=== PATIENT | female | born 1985 | race Two or more races ===

== ENCOUNTER 2018-12-02 14:44 | Inpatient (IN) | payer MEDICAID, OTHER ==
[~2018-12-02] VITALS: Ht 152.4 cm; Wt 75.0 kg
[2018-12-02] MEDS ORDERED: D5%-LACTATED RINGERS 1,000 ML IV SCH (14:53)
[2018-12-02] MEDS ORDERED: OXYTOCIN 30U/ 0.9% NaCL 500ML 500 ML IV ONE (14:53)
[2018-12-02] MEDS ORDERED: OXYTOCIN 30U/ 0.9% NaCL 500ML 500 ML IV PRN (14:53)
[2018-12-02] MEDS ORDERED: ONDANSETRON 2MG/ML, 2ML IVPush PRN (15:00)
[2018-12-02] MEDS ORDERED: METOCLOPRAMIDE 5 MG/ML, 2ML IVPush PRN (15:00)
[2018-12-02] MEDS ORDERED: FENTANYL PF 100 MCG/2ML IVPush PRN (15:00)
[2018-12-02] MEDS ORDERED: FENTANYL PF 100 MCG/2ML IV PRN (15:00)
[2018-12-02] MEDS ORDERED: PENICILLIN GK 5,000,000 UNITS in DEXTROSE 5% 100 ML IVPB ONE (15:30)
[2018-12-02] MEDS: PLEASE ENTER HEIGHT AND WEIGHT MC SCH ×2 (15:30→23:30)
[2018-12-02] MEDS ORDERED: PLEASE ENTER ALLERGIES MC SCH (15:30)
[2018-12-02] MEDS ORDERED: NEWBORN KIT ONE (15:33)
[2018-12-02] MEDS ORDERED: OXYTOCIN 30U/ 0.9% NaCL 500ML 500 ML ONE (15:33)
[2018-12-02] MEDS ORDERED: LIDOCAINE 1%, 20ML ONE (15:33)
[2018-12-02] MEDS ORDERED: MISOPROSTOL 200 MCG TABLET ONE (15:33)
[2018-12-02] MEDS: LACTATED RINGERS 1,000 ML IV SCH ×2 (15:44→22:17)
[2018-12-02 16:04] LABS: ALANINE AMINOTRANSFERASE 11 U/L (12-78); ALBUMIN 2.4 g/dL (3.4-5.0); ANION GAP 8 mmol/L (5-15); CALCIUM 8.3 mg/dL (8.5-10.1); CHLORIDE 111 mmol/L (98-107); CREATININE 0.72 mg/dL (0.55-1.02)
[2018-12-02 16:06] LABS: ALKALINE PHOSPHATASE 339 U/L (45-117); BILIRUBIN,TOTAL 0.2 mg/dL (0.2-1.0); TOTAL PROTEIN 5.9 g/dL (6.4-8.2)
[2018-12-02 16:17] LABS: BASOPHILS # (AUTO) 0.02 x10^3/uL (0-0.1); BASOPHILS % (AUTO) 0 % (0-1); EOSINOPHILS # (AUTO) 0.18 x10^3/uL (0-0.4); EOSINOPHILS % (AUTO) 4 % (1-7); LYMPHOCYTES # (AUTO) 1.09 x10^3/uL (1-3.4); LYMPHOCYTES % (AUTO) 24 % (22-44); MD SCAN; MEAN CORPUSCULAR HEMOGLOBIN 27.5 pg (27.0-34.8); MEAN CORPUSCULAR HGB CONC 32.4 g/dL (32.4-35.8); MEAN CORPUSCULAR VOLUME 84.8 fL (80-100); MEAN PLATELET VOLUME 11.1 fL (7.4-10.4); MONOCYTES # (AUTO) 0.36 x10^3/uL (0.2-0.8); MONOCYTES % (AUTO) 8 % (2-9); NEUTROPHILS % (AUTO) 64 % (42-75); PLATELET COUNT 74 x10^3/uL (130-400); RED BLOOD COUNT 3.94 x10^6/uL (3.82-5.3); RED CELL DISTRIBUTION WIDTH 14.7 % (9.6-15.2)
[2018-12-02] MEDS ORDERED: CALCIUM CARBONATE 500 MG TAB.CHEW PO PRN (20:00)
[2018-12-02] MEDS ORDERED: SODIUM CITRATE/CITRIC ACID 15 ML UDC PO ONE (20:00)
[2018-12-02] MEDS: PENICILLIN GK 2,500,000 UNITS in DEXTROSE 5% 100 ML IVPB SCH ×2 (20:06→23:47)
[2018-12-02] MEDS ORDERED: NALOXONE 0.4 MG/ML, 1ML IVPush PRN (21:30)
[2018-12-02] MEDS ORDERED: REMIFENTANIL 3 MG in SODIUM CHLORIDE 0.9% 30 ML IV PRN ×2 (21:30→23:00)
[2018-12-03] VITALS (7 sets, daily range): BP systolic 119–156; BP diastolic 78–104
[2018-12-03 01:33] LABS: MEAN CORPUSCULAR HEMOGLOBIN 27.8 pg (27.0-34.8); MEAN CORPUSCULAR HGB CONC 32.6 g/dL (32.4-35.8); MEAN CORPUSCULAR VOLUME 85.4 fL (80-100); PLATELET COUNT 82 x10^3/uL (130-400); RED BLOOD COUNT 4.19 x10^6/uL (3.82-5.3); RED CELL DISTRIBUTION WIDTH 15.1 % (9.6-15.2)
[2018-12-03 01:42] LABS: BASOPHILS # (AUTO) 0.01 x10^3/uL (0-0.1); BASOPHILS % (AUTO) 0 % (0-1); EOSINOPHILS # (AUTO) 0.22 x10^3/uL (0-0.4); EOSINOPHILS % (AUTO) 4 % (1-7); LYMPHOCYTES # (AUTO) 1.05 x10^3/uL (1-3.4); LYMPHOCYTES % (AUTO) 18 % (22-44); MD SCAN; MONOCYTES # (AUTO) 0.36 x10^3/uL (0.2-0.8); MONOCYTES % (AUTO) 6 % (2-9); NEUTROPHILS # (AUTO) 4.06 x10^3/uL (1.8-6.8); NEUTROPHILS % (AUTO) 71 % (42-75)
[2018-12-03] MEDS: PENICILLIN GK 2,500,000 UNITS in DEXTROSE 5% 100 ML IVPB SCH ×2 (03:55→07:57)
[2018-12-03] MEDS: LACTATED RINGERS 1,000 ML IV SCH ×3 (06:28→20:35)
[2018-12-03] MEDS: PLEASE ENTER HEIGHT AND WEIGHT MC SCH ×2 (07:30→15:30)
[2018-12-03 09:04] LABS: MEAN CORPUSCULAR HEMOGLOBIN 27.7 pg (27.0-34.8); MEAN CORPUSCULAR HGB CONC 32.3 g/dL (32.4-35.8); MEAN CORPUSCULAR VOLUME 85.6 fL (80-100); RED BLOOD COUNT 4.01 x10^6/uL (3.82-5.3); RED CELL DISTRIBUTION WIDTH 15.1 % (9.6-15.2)
[2018-12-03] MEDS ORDERED: MEPERIDINE/PF 25MG/0.5ML IVPush PRN (09:30)
[2018-12-03] MEDS ORDERED: hydrALAzine 20 MG/ML, 1ML IV PRN (09:30)
[2018-12-03] MEDS ORDERED: LABETALOL 5MG/ML, 20ML IV PRN (09:30)
[2018-12-03] MEDS ORDERED: METOPROLOL 1 MG/ML, 5ML IV PRN (09:30)
[2018-12-03] MEDS ORDERED: OXYcodone 5 MG/5 ML ORAL.SOL UDC PO PRN (09:30)
[2018-12-03] MEDS ORDERED: EPHEDRINE 50 MG/ML, 1ML IVPush PRN (09:30)
[2018-12-03] MEDS ORDERED: ALBUTEROL SULFATE 2.5 MG/3 ML NPPB PRN (09:30)
[2018-12-03] MEDS ORDERED: ONDANSETRON 2MG/ML, 2ML IVPush PRN (09:30)
[2018-12-03] MEDS ORDERED: HYDROcodone/APAP 7.5-325MG/15ML UDC PO PRN (09:30)
[2018-12-03] MEDS ORDERED: FENTANYL PF 100 MCG/2ML IV PRN (09:30)
[2018-12-03] MEDS ORDERED: MIDAZOLAM 1 MG/ML, 2ML IV PRN (09:30)
[2018-12-03] MEDS ORDERED: PROMETHAZINE 25 MG/ML, 1ML IV PRN (09:30)
[2018-12-03 09:36] LABS: D-DIMER (DIC) 4.52 ug/mlFEU (0.00-0.52); PROTIME 9.4 Seconds (9.6-11.5)
[2018-12-03 09:40] LABS: MEAN PLATELET VOLUME 10.7 fL (7.4-10.4); PLATELET COUNT 79 x10^3/uL (130-400)
[2018-12-03 09:42] LABS: BASOPHILS # (AUTO) 0.02 x10^3/uL (0-0.1); BASOPHILS % (AUTO) 0 % (0-1); EOSINOPHILS # (AUTO) 0.05 x10^3/uL (0-0.4); EOSINOPHILS % (AUTO) 1 % (1-7); LYMPHOCYTES # (AUTO) 0.93 x10^3/uL (1-3.4); LYMPHOCYTES % (AUTO) 14 % (22-44); MD SCAN; MONOCYTES # (AUTO) 0.49 x10^3/uL (0.2-0.8); MONOCYTES % (AUTO) 7 % (2-9); NEUTROPHILS % (AUTO) 78 % (42-75)
[2018-12-03 10:20] LABS: MICROSCOPIC NOT IND
[2018-12-03] MEDS ORDERED: LACTATED RINGERS 1,000 ML IV SCH (10:35)
[2018-12-03] MEDS: OXYTOCIN 30U/ 0.9% NaCL 500ML 500 ML IV SCH ×2 (10:35→20:35)
[2018-12-03] MEDS ORDERED: METOCLOPRAMIDE 5 MG/ML, 2ML ONE (10:37)
[2018-12-03] MEDS ORDERED: PROPOFOL 10 MG/ML, 20ML ONE (10:37)
[2018-12-03] MEDS ORDERED: SUCCINYLCHOLINE 20 MG/ML, 10ML ONE (10:37)
[2018-12-03] MEDS ORDERED: LIDOCAINE-MPF 2% ,5ML ONE (10:37)
[2018-12-03] MEDS ORDERED: OXYTOCIN 10 UNITS/ML, 1ML ONE (10:56)
[2018-12-03] MEDS ORDERED: KETOROLAC 30 MG/1 ML ONE (10:56)
[2018-12-03] MEDS ORDERED: DEXAMETHASONE 4 MG/ML, 1ML ONE (10:56)
[2018-12-03] MEDS ORDERED: PHENYLEPHRINE 10 MG/ML ONE (10:56)
[2018-12-03] MEDS ORDERED: ONDANSETRON 2MG/ML, 2ML ONE (10:56)
[2018-12-03] MEDS ORDERED: FENTANYL PF 100 MCG/2ML ONE ×2 (10:56→10:57)
[2018-12-03] MEDS ORDERED: CEFAZOLIN 1,000 MG ONE (10:56)
[2018-12-03] MEDS ORDERED: SODIUM BICARBONATE 1 MEQ/ML, 50ML VIAL ONE (10:56)
[2018-12-03] MEDS ORDERED: EPHEDRINE 50 MG/ML, 1ML ONE (10:56)
[2018-12-03] MEDS ORDERED: HYDROmorphone 2 MG/ML, 1ML ONE ×2 (10:57→11:48)
[2018-12-03] MEDS ORDERED: CARBOPROST TROMETHAMINE 250 MCG/ML, 1ML IM PRN (11:00)
[2018-12-03] MEDS ORDERED: MISOPROSTOL 200 MCG TABLET PR PRN (11:00)
[2018-12-03] MEDS ORDERED: SIMETHICONE 80 MG CHEW TAB PO PRN (11:00)
[2018-12-03] MEDS ORDERED: morphine SULFATE 10 MG/ML, 1ML IM PRN (11:00)
[2018-12-03] MEDS: KETOROLAC 30 MG/1 ML IV SCH ×2 (11:00→17:51)
[2018-12-03] MEDS ORDERED: MEASLES,MUMPS&RUBELLA VACC/PF 0.5 ML SQ-VACC PRN (11:00)
[2018-12-03] MEDS ORDERED: ONDANSETRON 2MG/ML, 2ML IV PRN (11:00)
[2018-12-03] MEDS ORDERED: DIPH,PERTUSS(ACELL),TET VAC/PF NC IM-VACC PRN (11:00)
[2018-12-03 11:03] LABS: CREATININE,URINE RANDOM 38.5 mg/dL
[2018-12-03] MEDS: HYDROmorphone 2 MG/ML, 1ML IVPush PRN ×3 (11:52→12:14)
[2018-12-03] MEDS ORDERED: HYDROcodone/APAP 7.5-325MG/15ML UDC ONE (13:08)
[2018-12-03] MEDS ORDERED: LACTATED RINGERS 1,000 ML IVBOLUS ONE (15:00)
[2018-12-03] MEDS ORDERED: MORPHINE SULFATE 4 MG/ML, 1ML ONE (15:34)
[2018-12-03] MEDS: OXYcodone IR 5MG TABLET PO PRN (17:24)
[2018-12-03 19:41] LABS: MEAN CORPUSCULAR HEMOGLOBIN 28.2 pg (27.0-34.8); MEAN CORPUSCULAR HGB CONC 32.4 g/dL (32.4-35.8); MEAN PLATELET VOLUME 10.4 fL (7.4-10.4); PLATELET COUNT 80 x10^3/uL (130-400); RED BLOOD COUNT 3.76 x10^6/uL (3.82-5.3); RED CELL DISTRIBUTION WIDTH 14.6 % (9.6-15.2)
[2018-12-03 19:43] LABS: MD YES
[2018-12-03 19:45] LABS: <PLATELET ESTIMATE> DECREASED; <PLT MORPHOLOGY> NORMAL PLT MORPH; BAND#(MANUAL) 1.79 x10^3/uL; BANDS%(MANUAL) 14 % (0-7); LYMPH#(MANUAL) 1.28 x10^3/uL (1-3.4); LYMPHS% (MANUAL) 10 % (22-44); MONOS#(MANUAL) 0.26 x10^3/uL (0.3-2.7); MONOS% (MANUAL) 2 % (2-9); POLYCHROMASIA 1+; SEG#(MANUAL) 9.47 x10^3/uL (1.8-6.8); SEGS% (MANUAL) 74 % (42-75)
[2018-12-04] VITALS: BP 127/85
[2018-12-04] MEDS: KETOROLAC 30 MG/1 ML IV SCH ×4 (00:03→20:43)
[2018-12-04] MEDS: DOCUSATE 100 MG CAPSULE PO PRN ×3 (00:04→20:45)
[2018-12-04 04:50] VITALS: BP 112/76
[2018-12-04] MEDS: OXYcodone/APAP 5/325MG TABLET PO PRN ×2 (06:28→13:00)
[2018-12-04] MEDS: LACTATED RINGERS 1,000 ML IV SCH ×2 (06:35→16:35)
[2018-12-04] MEDS: OXYTOCIN 30U/ 0.9% NaCL 500ML 500 ML IV SCH ×2 (06:35→16:35)
[2018-12-04 08:05] VITALS: BP 110/67
[2018-12-04] MEDS: PRENATAL VIT/IRON/FA 1 EACH TABLET PO SCH (08:23)
[2018-12-04] MEDS: ACETAMINOPHEN 325 MG TABLET PO PRN (16:45)
[2018-12-04] MEDS: OXYcodone IR 5MG TABLET PO PRN ×2 (16:45→20:53)
[2018-12-04 19:15] VITALS: BP 126/85
[2018-12-05] MEDS: KETOROLAC 30 MG/1 ML IV SCH (02:00)
[2018-12-05] MEDS: LACTATED RINGERS 1,000 ML IV SCH ×3 (02:35→22:35)
[2018-12-05] MEDS: OXYTOCIN 30U/ 0.9% NaCL 500ML 500 ML IV SCH ×3 (02:35→22:35)
[2018-12-05] MEDS: IBUPROFEN 600 MG TABLET PO PRN ×3 (04:21→17:54)
[2018-12-05] MEDS: OXYcodone IR 5MG TABLET PO PRN ×4 (04:26→22:06)
[2018-12-05] MEDS: ACETAMINOPHEN 325 MG TABLET PO PRN (07:36)
[2018-12-05] MEDS: PRENATAL VIT/IRON/FA 1 EACH TABLET PO SCH (07:36)
[2018-12-05] MEDS: DOCUSATE 100 MG CAPSULE PO PRN (07:36)
[2018-12-05 08:00] VITALS: BP 134/88
[2018-12-05 20:00] VITALS: BP 160/82
[2018-12-06 08:15] VITALS: BP 146/91
[2018-12-06] MEDS: DOCUSATE 100 MG CAPSULE PO PRN (08:50)
[2018-12-06] MEDS: PRENATAL VIT/IRON/FA 1 EACH TABLET PO SCH (08:50)
[2018-12-06] MEDS: IBUPROFEN 600 MG TABLET PO PRN (08:50)
[2018-12-06] MEDS: OXYcodone IR 5MG TABLET PO PRN (08:50)
[2018-12-06] MEDS ORDERED: OXYC-302 PO (11:11)
[2018-12-06] MEDS ORDERED: IBUP-1222 PO (11:11)
[2018-12-06 13:29] VITALS: BP 146/93
== END 2018-12-06 14:15 | disposition home or self-care (01) | DRG 787 ==
LOC: LDIP 14:44 → 2NW 12-03 13:58
PROVIDERS: ADMIT Student in an Organized Health Care Education/Training Program; ATTEND Student in an Organized Health Care Education/Training Program
PROC: 10D00Z1 Extraction of Products of Conception, Low, Open Approach (ICD-10-PCS; principal; 2018-12-03)
PROC: 10907ZC Drainage of Amniotic Fluid, Therapeutic from Products of Conception, Via Natural or Artificial Opening (ICD-10-PCS; 2018-12-03)
PROC: 10H07YZ Insertion of Other Device into Products of Conception, Via Natural or Artificial Opening (ICD-10-PCS; 2018-12-03)
PROC: 4A1H7CZ Monitoring of Products of Conception, Cardiac Rate, Via Natural or Artificial Opening (ICD-10-PCS; 2018-12-03)
PROC: 3E0234Z Introduction of Serum, Toxoid and Vaccine into Muscle, Percutaneous Approach (ICD-10-PCS; 2018-12-03)
DX: O14.94 Unspecified pre-eclampsia, complicating childbirth (principal); O99.12 Other diseases of the blood and blood-forming organs and certain disorders involving the immune mechanism complicating childbirth; O99.824 Streptococcus B carrier state complicating childbirth; Z3A.39 39 weeks gestation of pregnancy; Z37.0 Single live birth; G89.18 Other acute postprocedural pain; O62.0 Primary inadequate contractions; D69.59 Other secondary thrombocytopenia; O64.0XX0 Obstructed labor due to incomplete rotation of fetal head, not applicable or unspecified; Z23 Encounter for immunization
CPT/HCPCS: 36415; J3490; 80053; 81003; 82570; 82803; 84156; 84550; 85025; 85049; 85379; 85384; 85610; 85730; 86850; 86900; 86923; G0378; J0690; J1100; J1170; J1885; J2405; J2540; J2704; J3010; J0330; J2270; J2370; J2590; J2765; J7120

== ENCOUNTER 2020-04-08 03:54 | Outpatient (CLI) | payer MEDICAID ==
[~2020-04-08] VITALS: Ht 147.3 cm; Wt 72.3 kg
[~2020-04-08 03:54] MED LIST: IBUP-1222 PO; OXYC-302 PO
[2020-04-08 04:34] VITALS: BP 128/78
[2020-04-08 06:21] LABS: MICROSCOPIC INDICATED
[2020-04-08] MEDS ORDERED: HYDROcodone/APAP 5/325 TABLET PO ONE (07:30)
[2020-04-08] MEDS ORDERED: HYDROcodone/APAP 5/325 TABLET ONE (07:31)
== END 2020-04-08 09:00 | disposition home or self-care (01) ==
LOC: LDOP 03:54
PROVIDERS: ATTEND Student in an Organized Health Care Education/Training Program
DX: O62.9 Abnormality of forces of labor, unspecified (principal); Z3A.37 37 weeks gestation of pregnancy
CPT/HCPCS: 59025; 81001; 87086

== ENCOUNTER 2020-04-10 06:22 | Inpatient (IN) | payer MEDICAID ==
[~2020-04-10] VITALS: Ht 147.3 cm; Wt 72.3 kg
[2020-04-10 06:30] VITALS: BP 122/86
[2020-04-10] MEDS ORDERED: LACTATED RINGERS 1,000 ML IVBOLUS ONE (07:00)
[2020-04-10] MEDS ORDERED: SODIUM CITRATE/CITRIC ACID 30 ML UDC PO ONE (07:00)
[2020-04-10] MEDS ORDERED: METOCLOPRAMIDE 5 MG/ML, 2ML IV ONE (07:00)
[2020-04-10 07:12] LABS: BASOPHILS % (AUTO) 0 % (0-1); EOSINOPHILS % (AUTO) 0 % (1-7); LYMPHOCYTES % (AUTO) 21 % (22-44); MEAN CORPUSCULAR HEMOGLOBIN 26.9 pg (27.0-34.8); MEAN CORPUSCULAR HGB CONC 32.1 g/dL (32.4-35.8); MEAN PLATELET VOLUME 9.5 fL (7.4-10.4); MONOCYTES % (AUTO) 8 % (2-9); NEUTROPHILS % (AUTO) 70 % (42-75); PLATELET COUNT 103 x10^3/uL (130-400); RED BLOOD COUNT 4.46 x10^6/uL (3.82-5.3); RED CELL DISTRIBUTION WIDTH 15.2 % (9.6-15.2)
[2020-04-10] MEDS ORDERED: NEWBORN KIT ONE (07:16)
[2020-04-10] MEDS ORDERED: OXYTOCIN 30U/ 0.9% NaCL 500ML 500 ML ONE (07:16)
[2020-04-10] MEDS ORDERED: METOCLOPRAMIDE 5 MG/ML, 2ML ONE (07:16)
[2020-04-10 07:24] LABS: MD NO
[2020-04-10] MEDS: LACTATED RINGERS 1,000 ML IV SCH ×3 (07:42→23:00)
[2020-04-10] MEDS ORDERED: ONDANSETRON 2MG/ML, 2ML ONE (08:52)
[2020-04-10] MEDS ORDERED: CEFAZOLIN 1,000 MG ONE (08:52)
[2020-04-10] MEDS ORDERED: OXYTOCIN 10 UNITS/ML, 1ML ONE (08:52)
[2020-04-10] MEDS ORDERED: FENTANYL PF 100 MCG/2ML ONE (08:53)
[2020-04-10] MEDS ORDERED: HYDROmorphone 2 MG/ML, 1ML ONE (08:53)
[2020-04-10] MEDS ORDERED: KETOROLAC 30 MG/1 ML ONE (09:31)
[2020-04-10] MEDS: OXYTOCIN 30U/ 0.9% NaCL 500ML 500 ML IV SCH ×2 (10:26→20:30)
[2020-04-10] MEDS ORDERED: CALCIUM CARBONATE 500 MG TAB.CHEW PO PRN (10:30)
[2020-04-10] MEDS ORDERED: LACTATED RINGERS 1,000 ML IV SCH ×2 (10:30)
[2020-04-10] MEDS ORDERED: morphine SULFATE 10 MG/ML, 1ML IM PRN (10:30)
[2020-04-10] MEDS ORDERED: ONDANSETRON 2MG/ML, 2ML IV PRN (10:30)
[2020-04-10] MEDS ORDERED: MORPHINE SULFATE 4 MG/ML, 1ML IVPush PRN (10:30)
[2020-04-10] MEDS ORDERED: MISOPROSTOL 200 MCG TABLET PR PRN (10:30)
[2020-04-10] MEDS ORDERED: OXYcodone IR 5MG TABLET ONE (11:43)
[2020-04-10] MEDS: OXYcodone IR 5MG TABLET PO PRN ×2 (11:49→22:40)
[2020-04-10 13:30] VITALS: BP 135/88
[2020-04-10] MEDS: ACETAMINOPHEN 325 MG TABLET PO SCH ×2 (16:30→22:30)
[2020-04-10] MEDS: KETOROLAC 30 MG/1 ML IV SCH ×2 (16:50→22:38)
[2020-04-10 17:00] VITALS: BP 133/87
[2020-04-10 17:22] LABS: BASOPHILS % (AUTO) 1 % (0-1); EOSINOPHILS % (AUTO) 0 % (1-7); LYMPHOCYTES % (AUTO) 21 % (22-44); MEAN CORPUSCULAR HEMOGLOBIN 27.2 pg (27.0-34.8); MEAN CORPUSCULAR HGB CONC 32.3 g/dL (32.4-35.8); MEAN PLATELET VOLUME 9.9 fL (7.4-10.4); MONOCYTES % (AUTO) 7 % (2-9); NEUTROPHILS % (AUTO) 71 % (42-75); PLATELET COUNT 89 x10^3/uL (130-400); RED BLOOD COUNT 3.82 x10^6/uL (3.82-5.3); RED CELL DISTRIBUTION WIDTH 15.1 % (9.6-15.2)
[2020-04-10 17:25] LABS: MD NO
[2020-04-10 19:35] VITALS: BP 116/78
[2020-04-10] MEDS: DOCUSATE 100 MG CAPSULE PO PRN (22:39)
[2020-04-10 23:51] VITALS: BP 122/80
[2020-04-11] MEDS: OXYcodone IR 5MG TABLET PO PRN ×4 (03:05→17:00)
[2020-04-11] MEDS: SIMETHICONE 80 MG CHEW TAB PO PRN ×3 (04:06→22:32)
[2020-04-11] MEDS: ACETAMINOPHEN 325 MG TABLET PO SCH (04:07)
[2020-04-11 04:39] VITALS: BP 135/83
[2020-04-11] MEDS: KETOROLAC 30 MG/1 ML IV SCH ×2 (05:10→11:01)
[2020-04-11] MEDS: OXYTOCIN 30U/ 0.9% NaCL 500ML 500 ML IV SCH ×2 (06:30→15:52)
[2020-04-11] MEDS: LACTATED RINGERS 1,000 ML IV SCH ×3 (07:00→23:00)
[2020-04-11 07:39] VITALS: BP 113/75
[2020-04-11] MEDS: PRENATAL VIT/IRON/FA 1 EACH TABLET PO SCH (08:12)
[2020-04-11] MEDS: DOCUSATE 100 MG CAPSULE PO PRN ×2 (08:12→22:32)
[2020-04-11] MEDS ORDERED: ACETAMINOPHEN 500 MG TABLET PO SCH (09:41)
[2020-04-11] MEDS ORDERED: KETOROLAC 30 MG/1 ML ONE (10:55)
[2020-04-11] MEDS: ACETAMINOPHEN 500 MG TABLET PO SCH ×2 (15:53→22:32)
[2020-04-11] MEDS: IBUPROFEN 600 MG TABLET PO SCH ×2 (17:00→22:33)
[2020-04-11 20:00] VITALS: BP 122/77
[2020-04-12] MEDS: OXYTOCIN 30U/ 0.9% NaCL 500ML 500 ML IV SCH ×3 (02:30→22:30)
[2020-04-12] MEDS: IBUPROFEN 600 MG TABLET PO SCH ×4 (04:29→22:30)
[2020-04-12] MEDS: ACETAMINOPHEN 500 MG TABLET PO SCH ×4 (04:29→22:29)
[2020-04-12] MEDS: OXYcodone IR 5MG TABLET PO PRN ×2 (06:40→10:45)
[2020-04-12] MEDS: SIMETHICONE 80 MG CHEW TAB PO PRN ×2 (06:40→22:30)
[2020-04-12 07:37] VITALS: BP 122/78
[2020-04-12] MEDS: LACTATED RINGERS 1,000 ML IV SCH ×3 (08:23→23:00)
[2020-04-12] MEDS: DOCUSATE 100 MG CAPSULE PO PRN ×2 (08:25→22:30)
[2020-04-12] MEDS: PRENATAL VIT/IRON/FA 1 EACH TABLET PO SCH (08:25)
[2020-04-12] MEDS ORDERED: IBUP-1222 PO (09:44)
[2020-04-12] MEDS ORDERED: OXYC-302 PO (09:44)
[2020-04-12] MEDS ORDERED: DOCU-131 PO (09:44)
[2020-04-12 19:55] VITALS: BP 135/83
[2020-04-13] MEDS: ACETAMINOPHEN 500 MG TABLET PO SCH ×2 (04:34→10:50)
[2020-04-13] MEDS: IBUPROFEN 600 MG TABLET PO SCH ×2 (04:34→10:50)
[2020-04-13] MEDS: LACTATED RINGERS 1,000 ML IV SCH (07:00)
[2020-04-13 08:13] VITALS: BP 150/80
[2020-04-13] MEDS: OXYTOCIN 30U/ 0.9% NaCL 500ML 500 ML IV SCH (08:30)
[2020-04-13] MEDS: PRENATAL VIT/IRON/FA 1 EACH TABLET PO SCH (10:50)
[2020-04-13] MEDS: DOCUSATE 100 MG CAPSULE PO PRN (10:50)
== END 2020-04-13 15:20 | disposition home or self-care (01) | DRG 540 ==
LOC: LDOP 06:22 → LDIP 06:56 → 2NW 12:17
PROVIDERS: ADMIT Student in an Organized Health Care Education/Training Program; ATTEND Student in an Organized Health Care Education/Training Program
PROC: 10D00Z1 Extraction of Products of Conception, Low, Open Approach (ICD-10-PCS; principal; 2020-04-10)
DX: O34.211 Maternal care for low transverse scar from previous cesarean delivery (principal); E66.9 Obesity, unspecified; O69.81X0 Labor and delivery complicated by cord around neck, without compression, not applicable or unspecified; O99.214 Obesity complicating childbirth; Z37.0 Single live birth; Z3A.37 37 weeks gestation of pregnancy; Z20.828 Contact with and (suspected) exposure to other viral communicable diseases
CPT/HCPCS: 36415; 85025; 86592; 86850; 86900; 87635; G0378; J0690; J1170; J1885; J2405; J3010; J2590; J2765; J7120